=== PATIENT | female | born 1965 | race Two or more races ===

== ENCOUNTER 2025-01-04 23:54 | Emergency (ER) | payer OTHER ==
[~2025-01-04] VITALS: Ht 160 cm; Wt 136.1 kg
[2025-01-05] MEDS ORDERED: KETOROLAC TROMETHAMINE 10 MG TABLET PO STA (01:29)
[2025-01-05] MEDS ORDERED: KETOROLAC TROMETHAMINE 10 MG TABLET PO ONE ×2 (01:35→08:45)
== END 2025-01-05 08:50 | disposition home or self-care (01) ==
LOC: ER 23:54
DX: M25.571 Pain in right ankle and joints of right foot (principal); M25.572 Pain in left ankle and joints of left foot; Z88.0 Allergy status to penicillin